=== PATIENT | male | born 1935 | race Caucasian/White ===

== ENCOUNTER 2017-05-21 13:48 | Emergency (ER) | payer MEDICARE, BC ==
--- NOTE | 2017-05-21 14:58 | CT ---
CT BRAIN WITHOUT CONTRAST: HISTORY: Fall. Trauma to the head on the ground. FINDINGS: There are changes of cortical atrophy and chronic small vessel ischemic disease. No evidence of acut e infarct, hemorrhage, midline shift, or abnormal extraaxial fluid collections are seen. The ventric ular size is appropriate, and the basilar cisterns are patent. The bony calvarium is intact. There is mucosal disease in the paranasal sinuses. IMPRESSION: No CT evidence of acute intracranial process. POS: [facility]
--- NOTE | 2017-05-21 14:58 | CT ---
CT CERVICAL SPINE WITH CORONAL AND SAGITTAL REFORMATIONS: HISTORY: Fall. Trauma to the head. FINDINGS: There are multilevel degenerative changes in the cervical spine. No acute fracture or subluxation is identified. POS: [facility]
--- NOTE | 2017-05-21 16:01 | RAD ---
RIGHT FOREARM TWO VIEWS: HISTORY: Fall, right elbow pain. FINDINGS/IMPRESSION: The right radius and ulna appear intact. If there is pain and tenderness in the right elbow, dedicated 4-view radiograph of the right elbow sh ould be performed. POS: [facility]
--- NOTE | 2017-05-21 16:03 | RAD ---
RIGHT HUMERUS TWO VIEWS: HISTORY: Fall, right arm pain, right elbow pain. FINDINGS/IMPRESSION: The right humerus appears intact. If there is pain and tenderness in the region of the elbow joint, dedicated four-view radiographs of the right elbow should be performed. POS: [facility]
== END 2017-05-21 15:43 ==
LOC: ERS 13:48
DX: S09.90XA Unspecified injury of head, initial encounter (principal); S50.01XA Contusion of right elbow, initial encounter; G30.9 Alzheimer's disease, unspecified; F02.80 Dementia in other diseases classified elsewhere, unspecified severity, without behavioral disturbance, psychotic disturbance, mood disturbance, and anxiety; E03.9 Hypothyroidism, unspecified; W18.30XA Fall on same level, unspecified, initial encounter
CPT/HCPCS: 70450; 72125

== ENCOUNTER 2017-06-02 21:04 | Emergency (ER) | payer BC, MEDICARE ==
--- NOTE | 2017-06-02 22:12 | CT ---
CT CERVICAL SPINE WITH CORONAL AND SAGITTAL REFORMATIONS 06/02/17 HISTORY: Trauma. Witnessed fall. FINDINGS/IMPRESSION: Comparison is made to exam of 05/21/17. Multilevel degenerative changes in the cervical spine are redemonstrated. No acute fracture or sublux ations are identified. POS: [facility]
--- NOTE | 2017-06-02 22:14 | CT ---
CT BRAIN WITHOUT CONTRAST 06/02/17 HISTORY: Fall. Witnessed fall. FINDINGS: Comparison made with exam of 05/21/17. Changes of cortical atrophy and chronic small vessel ischemic disease are redemonstrated. No evidence of acute infarct, hemorrhage, midline shift, or abnormal extra-axial fluid collections are seen. The ventricular size is appropriate and the basilar cisterns patent. The bony calvarium is intact. There is mucosal disease in the paranasal sinuses. IMPRESSION: No CT evidence of acute intracranial process. POS: [facility]
== END 2017-06-02 23:16 | disposition home or self-care (01) ==
LOC: ERS 21:04
DX: S09.90XA Unspecified injury of head, initial encounter (principal); E03.9 Hypothyroidism, unspecified; G30.9 Alzheimer's disease, unspecified; F02.80 Dementia in other diseases classified elsewhere, unspecified severity, without behavioral disturbance, psychotic disturbance, mood disturbance, and anxiety; W18.30XA Fall on same level, unspecified, initial encounter; Z79.899 Other long term (current) drug therapy; Z79.82 Long term (current) use of aspirin
CPT/HCPCS: 70450; 72125

== ENCOUNTER 2017-06-18 17:42 | Emergency (ER) | payer MEDICARE, BC ==
--- NOTE | 2017-06-18 18:39 | CT ---
EXAM: NONCONTRAST HEAD CT 06/18/17 HISTORY: Fall. Posttraumatic pain. COMPARISON: 06/02/17. TECHNIQUE: Noncontrast head CT is performed from skull base to skull vertex. FINDINGS: Hypodensity in the anterior left middle cranial fossa may be due to an arachnoid cyst. There is no ex tra-axial hematoma. No parenchymal hemorrhage. No midline shift. Basilar cisterns are patent. Age appropriate atrophy. Cortical barillas-white matter differentiation is preserved. No evidence of hydrocephalus. White matter hypodensities or chronic small vessel ischemic changes are noted. The sella appears to be prominent. Findings may be due to partially empty sella. The possibility of a sellar mass cannot be completely excluded. Nonemergent MRI utilizing the pituitary mass protocol is recommended. Calvarium is intact. 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 Partial calcification of t he right ethmoid air cells. Adequate mastoid air cell aeration. IMPRESSION: 1. No intracranial posttraumatic sequela. 2. Age appropriate atrophy. 3. Chronic small vessel ischemic change white matter. 4. Prominent and expanded sella of uncertain etiology and significance. 5. Better interrogation with a nonemergent MRI utilizing sellar mass protocol is recommended. POS: [facility]
--- NOTE | 2017-06-18 18:45 | CT ---
CT CERVICAL SPINE WITHOUT CONTRAST 06/18/17 HISTORY: Trauma. Fall. COMPARISON: CT cervical spine 06/02/17. FINDINGS: The occipital condyles are intact. The odontoid process is intact. Osseous fusion of the C5-6, C6-7, C7-T1 vertebral bodies. No acute displaced fracture or malalignment of the cervical spine. Dense calcifications of the caroti d bulbs and proximal internal carotid arteries. The lung apices are clear. Paraspinal soft tissues are unremarkable. IMPRESSION: No acute fracture or malalignment cervical spine. POS: [facility]
[2017-06-18 18:48] LABS: #Eosinphils 0.1 thou/uL (0.0-0.7); #Lymphocytes 0.8 thou/uL (1.20-3.40); #Monocytes 0.4 thou/uL (0.11-0.59); #Neutrophils 4.3 thou/uL (1.40-6.50); %Basophils 0.3 % (0.0-1.0); %Eosinophils 1.6 % (0.0-10.0); %Lymphocytes 14.8 % (21.0-51.0); %Monocytes 6.4 % (0.0-10.0); %Neutrophils 76.9 % (42.0-75.0); Hemoglobin 13.2 g/dL (14.0-18.0); Mean Corpuscular HGB CONC 33.6 g/dL (32.0-36.0); Mean Corpuscular Hemoglobin 31.8 pg (27.0-31.0); Mean Corpuscular Volume 94.5 fl (80.0-94.0); Mean Platelet Volume 7.6 fL (7.4-10.4); Platelet Count 224 thou/uL (130-400); Red Blood Cell (RBC) Count 4.16 mill/uL (4.70-6.10); White Blood Cell (WBC) Count 5.6 thou/uL (4.8-10.8)
--- NOTE | 2017-06-18 18:49 | RAD ---
EXAM: RIGHT ELBOW FOUR VIEWS 06/18/17 HISTORY: Fall. Pain. Trauma. FINDINGS: No joint effusion. No fracture. No malalignment. Joint spaces are preserved. IMPRESSION: Unremarkable right elbow radiographs. POS: [facility]
[2017-06-18 19:11] LABS: Anion Gap 16 mmol/L (10-20); BUN (Urea Nitrogen) 27 mg/dL (8.4-25.7); Calc. Creatinine Clearance 0 mL/min (70-130); Calcium 9.2 mg/dL (7.8-10.44); Carbon Dioxide 28 mmol/L (23-31); Chloride 99 mmol/L (98-107); Estimated GFR-MDRD 32; Glucose 205 mg/dL (83-110); Potassium 3.1 mmol/L (3.5-5.1); Sodium 140 mmol/L (136-145)
[2017-06-18 19:16] LABS: CKMB 1.8 ng/mL (0-6.6); Troponin I 0.039 ng/mL (< 0.028)
[2017-06-18] MEDS ORDERED: Potassium Chloride 20 MEQ TAB ONE (20:00)
== END 2017-06-18 20:03 | disposition home or self-care (01) ==
LOC: ERS 17:42
DX: S51.011A Laceration without foreign body of right elbow, initial encounter (principal); G30.9 Alzheimer's disease, unspecified; F02.80 Dementia in other diseases classified elsewhere, unspecified severity, without behavioral disturbance, psychotic disturbance, mood disturbance, and anxiety; E03.9 Hypothyroidism, unspecified; W01.0XXA Fall on same level from slipping, tripping and stumbling without subsequent striking against object, initial encounter
CPT/HCPCS: 36415; 70450; 72125; 80048; 82553; 84484; 85025; 93005

== ENCOUNTER 2018-10-07 14:38 | Emergency (ER) | payer MEDICARE, BC ==
--- NOTE | 2018-10-07 15:29 | RAD ---
EXAM: Right elbow: 4 views INDICATIONS: Fall with injury to elbow COMPARISON: 06/18/2017 FINDINGS: No evidence of fracture. No evidence of joint effusion. Mild degenerative change. IMPRESSION: No acute finding
--- NOTE | 2018-10-07 15:58 | CT ---
CT head without contrast: Multiple axial tomograms obtained through the head without IV enhancement. INDICATIONS: Fall with injury to head mental status change COMPARISON: 06/18/2017 FINDINGS: Cortical volume loss again noted. Moderate chronic cerebral white matter change again noted. Ventricles have normal size and position. No evidence of intracranial mass, hemorrhage, edema, or infarct. Increased density and enlargement of the sella turcica is again noted. This is a stable finding. Visualized sinuses and mastoids appear clear. Bony calvarium appears unremarkable. IMPRESSION: No acute finding Enlarged sella turcica is again noted and is unchanged from prior exam. This was described previously .
[2018-10-07] MEDS ORDERED: Lidocaine 1% w/Epinephrine 1:100K 20 ML VIAL ONE (16:27)
[2018-10-07] MEDS ORDERED: Lidocaine 1% PF 5 ML VIAL ONE (16:39)
[2018-10-07] MEDS ORDERED: Adacel (T-DAP) 0.5 ML SYRINGE ONE (16:39)
== END 2018-10-07 19:38 ==
LOC: ERS 14:38
DX: S51.011A Laceration without foreign body of right elbow, initial encounter (principal); S00.03XA Contusion of scalp, initial encounter; E03.9 Hypothyroidism, unspecified; I48.91 Unspecified atrial fibrillation; G30.9 Alzheimer's disease, unspecified; F02.80 Dementia in other diseases classified elsewhere, unspecified severity, without behavioral disturbance, psychotic disturbance, mood disturbance, and anxiety; Z79.899 Other long term (current) drug therapy; Z79.82 Long term (current) use of aspirin; Z23 Encounter for immunization; W19.XXXA Unspecified fall, initial encounter
CPT/HCPCS: 12002; 70450; 90471; 90715; J2001